=== PATIENT | male | born 1940 | race African-American/Black ===

== ENCOUNTER 2019-03-03 19:41 | Inpatient (IN) | payer MEDICARE, MEDICAID ==
[~2019-03-03] VITALS: Ht 180.3 cm; Wt 62.3 kg
[~2019-03-03 19:41] MED LIST: CARB200T6 PO; DOCU100C33 PO; ESOM20CA31 PO; FERR324T4 PO; PRIM250T30 PO; XALA2.5OS OU
[2019-03-03 21:07] LABS: BASOPHILS % (AUTO) 1.3 % (0.0-2.0); EOSINOPHILS % (AUTO) 2.9 % (1.0-6.0); HEMOGLOBIN 8.2 g/dL (13.5-17.5); LYMPHOCYTES # (AUTO) 1.4 K/uL (1.0-4.8); LYMPHOCYTES % (AUTO) 44.4 % (22.0-44.0); MEAN CORPUSCULAR HEMOGLOBIN 29.6 pg (26.0-34.0); MEAN CORPUSCULAR HGB CONC 31.4 G/dL (31.0-37.0); MEAN CORPUSCULAR VOLUME 94 fL (80-100); MONOCYTES # (AUTO) 0.3 K/uL (0.1-1.0); NEUTROPHILS # (AUTO) 1.3 K/uL (1.8-7.7); NEUTROPHILS % (AUTO) 41.4 % (40.0-70.0); PLATELET COUNT (AUTO) 345 K/uL (150-450); RED BLOOD CELL COUNT(AUTO) 2.76 MIL/uL (4.50-5.90); RED CELL DISTRIBUTION WIDTH 18.5 % (11.5-14.5)
[2019-03-03 21:21] LABS: ANION GAP 11 mmol/L (8-16); CARBON DIOXIDE 17 mmol/L (22-29); CHLORIDE 107 mmol/L (98-107); CREATININE 1.81 mg/dL (0.60-1.30); GLOMERULAR FILTR. RATE CALC 44 mL/min (>60); GLUCOSE,RANDOM 90 mg/dL (70-110); POTASSIUM 4.7 mmol/L (3.5-5.1); SODIUM SERUM 135 mmol/L (136-145); UREA NITROGEN, BLOOD 34 mg/dL (7-18)
[2019-03-03 21:27] LABS: ALANINE AMINOTRANSFERASE 9 U/L (12-78); ALBUMIN 2.4 g/dL (3.4-5.0); ALKALINE PHOSPHATASE 189 U/L (46-116); ASPARTATE AMINOTRANSFERASE 17 U/L (15-37); BILIRUBIN,TOTAL 0.1 mg/dL (0.1-1.0); TOTAL PROTEIN, SERUM 6.6 g/dL (6.4-8.2)
[2019-03-03 22:01] LABS: APPEARANCE,URINE CLEAR (CLEAR); BILIRUBIN,URINE NEGATIVE (NEGATIVE); GLUCOSE, URINE (UA) NEGATIVE (NEGATIVE); KETONES,URINE NEGATIVE (NEGATIVE); LEUKOCYTE ESTERASE ,URINE NEGATIVE (NEGATIVE); NITRATE,URINE NEGATIVE (NEGATIVE); OCCULT BLOOD,URINE NEGATIVE (NEGATIVE); PROTEIN,URINE POS 1+ (NEGATIVE); UROBILINOGEN,URINE 0.2 mg/dL (<=1.0)
[2019-03-03 22:15] LABS: BACTERIA,URINE None Seen /HPF (None Seen); RBC,URINE 0-2 /HPF (0-2); WBC,URINE 0-2 /HPF (0-5)
[2019-03-03 22:16] LABS: SQUAMOUS EPITHELIAL CELL,UR Rare /LPF (None Seen)
[2019-03-03] MEDS ORDERED: LATANOPROST 0.005% 2.5 ML OPHTHALMIC SOLUTION OU SCH (23:00)
[2019-03-03] MEDS ORDERED: ZOLPIDEM TARTRATE 5 MG TABLET PO PRN (23:00)
[2019-03-03] MEDS ORDERED: 0.9% SODIUM CHLORIDE 10 ML SYRINGE IVP PRN ×2 (23:00)
[2019-03-03] MEDS ORDERED: ONDANSETRON HCL 4 MG/2 ML VIAL IVP PRN ×2 (23:00)
[2019-03-03] MEDS ORDERED: IPRATROPIUM BROMIDE 0.5 MG/2.5 ML NEB SOLUTION NEB PRN (23:00)
[2019-03-03] MEDS ORDERED: ALBUTEROL SULFATE 2.5 MG/0.5 ML NEB SOLUTION NEB PRN (23:00)
[2019-03-03] MEDS ORDERED: ACETAMINOPHEN 325 MG TABLET PO PRN (23:00)
[2019-03-03 23:46] LABS: C-REACTIVE PROTEIN QUANT 1.85 mg/dL (0.00-0.30)
[2019-03-04] MEDS: CefTRIAXone 1 GM/DEXTROSE 50 ML IV SCH (00:27)
[2019-03-04] MEDS: CarBAMazepine 200 MG TABLET PO SCH ×3 (00:27→21:33)
[2019-03-04] MEDS: HEPARIN SODIUM,PORCINE 5,000 UNITS/ML VIAL SQ SCH ×3 (00:38→21:00)
[2019-03-04 00:41] LABS: ERYTHROCYTE SEDIMENTATION RATE 119 MM/HR (0-15)
[2019-03-04] MEDS: AZITHROMYCIN 500 MG/NS 250 ML IV SCH (01:01)
[2019-03-04 01:32] VITALS: BP 149/89
[2019-03-04] MEDS: IPRATROPIUM BROMIDE 0.5 MG/2.5 ML NEB SOLUTION NEB SCH ×4 (01:54→20:36)
[2019-03-04] MEDS: ALBUTEROL SULFATE 2.5 MG/0.5 ML NEB SOLUTION NEB SCH ×4 (01:54→20:36)
[2019-03-04 05:32] VITALS: BP 137/89
[2019-03-04 06:17] LABS: EOSINOPHILS % (AUTO) 3.8 % (1.0-6.0); HEMATOCRIT 25.2 % (41-53); HEMOGLOBIN 7.9 g/dL (13.5-17.5); LYMPHOCYTES # (AUTO) 1.7 K/uL (1.0-4.8); LYMPHOCYTES % (AUTO) 45.1 % (22.0-44.0); MEAN CORPUSCULAR HEMOGLOBIN 29.8 pg (26.0-34.0); MEAN CORPUSCULAR HGB CONC 31.4 G/dL (31.0-37.0); MEAN CORPUSCULAR VOLUME 95 fL (80-100); MONOCYTES # (AUTO) 0.4 K/uL (0.1-1.0); MONOCYTES % (AUTO) 10.2 % (2.0-9.0); NEUTROPHILS # (AUTO) 1.5 K/uL (1.8-7.7); NEUTROPHILS % (AUTO) 39.9 % (40.0-70.0); PLATELET COUNT (AUTO) 366 K/uL (150-450); RED BLOOD CELL COUNT(AUTO) 2.66 MIL/uL (4.50-5.90); RED CELL DISTRIBUTION WIDTH 18.7 % (11.5-14.5)
[2019-03-04 06:35] LABS: CALCIUM, TOTAL 7.9 mg/dL (8.8-10.5); CREATININE 1.79 mg/dL (0.60-1.30); MAGNESIUM 1.8 mg/dL (1.80-2.40); POTASSIUM 4.4 mmol/L (3.5-5.1)
[2019-03-04] MEDS: PRIMIDONE 250 MG TABLET PO SCH ×2 (09:00→21:33)
[2019-03-04 10:27] VITALS: BP 132/66
[2019-03-04] MEDS: PANTOPRAZOLE SODIUM 40 MG DR TABLET PO SCH (10:55)
[2019-03-04] MEDS ORDERED: PANT40TA25 PO (12:02)
[2019-03-04] MEDS ORDERED: TAMS-1 PO (12:02)
[2019-03-04] MEDS ORDERED: METO25 PO (12:02)
[2019-03-04] MEDS ORDERED: ISOS30TA6 PO (12:02)
[2019-03-04] MEDS ORDERED: HYDR10TA31 PO (12:02)
[2019-03-04] MEDS ORDERED: FOLI1 PO (12:02)
[2019-03-04 14:14] VITALS: BP 136/80
[2019-03-04 16:48] LABS: CARBAMAZEPINE (TEGRETOL) 9.3 mcg/mL (4.0-12.0)
[2019-03-04 19:17] VITALS: BP 134/80
[2019-03-04 20:09] VITALS: BP 146/75
[2019-03-04] MEDS ORDERED: TAMSULOSIN HCL 0.4 MG CAPSULE PO SCH (21:00)
[2019-03-04] MEDS ORDERED: HEPARIN SODIUM,PORCINE 5,000 UNITS/ML VIAL SQ SCH (21:00)
[2019-03-04] MEDS ORDERED: SODIUM CHLORIDE 0.9% 100 ML ONE (23:56)
[2019-03-05] MEDS: CefTRIAXone 1 GM/DEXTROSE 50 ML IV SCH (00:19)
[2019-03-05 00:25] VITALS: BP 140/77
[2019-03-05] MEDS: AZITHROMYCIN 500 MG/NS 250 ML IV SCH (01:12)
[2019-03-05] MEDS: ALBUTEROL SULFATE 2.5 MG/0.5 ML NEB SOLUTION NEB SCH ×2 (02:00→08:00)
[2019-03-05] MEDS: IPRATROPIUM BROMIDE 0.5 MG/2.5 ML NEB SOLUTION NEB SCH ×2 (02:00→08:00)
[2019-03-05 04:53] VITALS: BP 150/76
[2019-03-05 08:39] VITALS: BP 151/90
[2019-03-05] MEDS: CarBAMazepine 200 MG TABLET PO SCH (09:00)
[2019-03-05] MEDS: PRIMIDONE 250 MG TABLET PO SCH (09:00)
[2019-03-05] MEDS: PANTOPRAZOLE SODIUM 40 MG DR TABLET PO SCH (09:00)
[2019-03-05] MEDS: HEPARIN SODIUM,PORCINE 5,000 UNITS/ML VIAL SQ SCH (09:00)
== END 2019-03-05 10:10 | disposition left against medical advice (07) | DRG 291 ==
LOC: EMS 19:41 → AHU 03-04 → 5S 03-04 08:41 → 5N 03-05 06:45
PROVIDERS: ADMIT Internal Medicine; ATTEND Internal Medicine
DX: I50.21 Acute systolic (congestive) heart failure (principal); J18.9 Pneumonia, unspecified organism; E43 Unspecified severe protein-calorie malnutrition; J98.11 Atelectasis; Z68.1 Body mass index [BMI] 19.9 or less, adult; D63.8 Anemia in other chronic diseases classified elsewhere; E86.0 Dehydration; M19.90 Unspecified osteoarthritis, unspecified site; Z53.21 Procedure and treatment not carried out due to patient leaving prior to being seen by health care provider; J44.9 Chronic obstructive pulmonary disease, unspecified; N18.3 Chronic kidney disease, stage 3 (moderate); R62.7 Adult failure to thrive; Z87.891 Personal history of nicotine dependence; Z91.19 Patient's noncompliance with other medical treatment and regimen
CPT/HCPCS: 83735; 84145; 85651; 86140; 93005; 93306; 94640; 97162; J0456; J0696; J1644; J7050

== ENCOUNTER 2019-03-05 14:10 | Emergency (ER) | payer MEDICARE, MEDICAID ==
[~2019-03-05] VITALS: Ht 172.7 cm; Wt 63.8 kg
[~2019-03-05 14:10] MED LIST changes: +FOLI1 PO; +HYDR10TA31 PO; +ISOS30TA6 PO; +METO25 PO; +PANT40TA25 PO; +TAMS-1 PO
[2019-03-05 15:34] VITALS: BP 168/94
== END 2019-03-05 15:37 | disposition left against medical advice (07) ==
LOC: EMS 14:11
DX: G40.909 Epilepsy, unspecified, not intractable, without status epilepticus (principal); R53.1 Weakness; F17.210 Nicotine dependence, cigarettes, uncomplicated; Z79.899 Other long term (current) drug therapy